=== PATIENT | male | born 1945 | race Caucasian/White ===

== ENCOUNTER → 2016-06-12 | Outpatient (CLI) | payer MEDICARE ==
--- NOTE | 2016-06-12 19:00 | PN ---
This patient has chronic insomnia, he is a 70-year-old and is coming in for a yearly check. He is still on 10 mg of Ambien which helps with ( ) induction and maintenance. He is unable to sleep at all off the treatment. Ambien has helped this patient consolidate his sleep hours to an average of 6 to 7 hours of sleep every night and he wakes up refreshed and alert during the day. No sleepwalking. No other side effects related to Ambien and his treatment has been essentially successful. No other medical problems or comorbidities since. No symptoms of restless legs. No nocturnal pain. No nocturnal dyspnea or chest pain. No nightmares. No other complaints otherwise. BP is 128/78, pulse 60, respirations 16, temperature 98.4, saturation 97% on room air. Weight is 274. Hart score is at 8. BMI is 38. GENERAL APPEARANCE: Calm, comfortable. HEENT: Negative for goiter or neck masses. LUNGS: Clear to auscultation. CARDIOVASCULAR: Heart sounds regular rate and rhythm. Normal S1, S2. ABDOMEN: Soft, nontender. No organomegaly. EXTREMITIES: No edema. No cyanosis or clubbing. IMPRESSION: 1. Chronic insomnia well treated with Ambien 10 mg. 2. Mild positional obstructive sleep apnea in a patient who has lost a considerable amount of weight since last year. 3. Benign prostatic hypertrophy. 4. Nephrolithiasis. 5. Hyperlipidemia. PLAN: 1. Continue with Ambien 10 mg at bedtime. 2. Encourage further weight loss. 3. See me back in a year's time in follow-up, earlier if needed.
== END | disposition home or self-care (01) ==

== ENCOUNTER → 2016-07-02 | Outpatient (CLI) | payer MEDICARE ==
[2016-07-02 14:42] LABS: Aty Lym Flag Slight; CH 29.8; CHCM 33.5; HCT 48.7 % (39.0-53.0); HDW 3.08; HGB 15.8 gm/dL (13.0-17.5); MCHC 32.5 g/dL (31.0-37.0); MCV 89.3 fL (80.0-100.0); Mean Platelet Volume 6.8; RBC 5.45 m/uL (4.30-5.90); RDW 15.1 % (11.5-15.5); WBC 7.3 k/uL (3.8-10.6); WBC (Perox) 7.62
[2016-07-02 14:45] LABS: Anion Gap 12 mmol/L; Blood Urea Nitrogen 20 mg/dL (9-20); Calcium 9.6 mg/dL (8.4-10.2); Carbon Dioxide 28 mmol/L (22-30); Chloride 103 mmol/L (98-107); Glucose 104 mg/dL (74-99); Non-African American GFR(MDRD) >60 (>60 ml/min/1.73 sqM); Potassium 4.4 mmol/L (3.5-5.1); Sodium 143 mmol/L (137-145)
[2016-07-02 15:13] LABS: Add Differential Manual Differential
[2016-07-02 15:16] LABS: Nucleated Red Blood Cells 0 /100 WBC (0-0); Total Cells Counted 100
[2016-07-02 15:17] LABS: Manual Review Performed
== END | disposition home or self-care (01) ==
LOC: LABWHC1 13:27
PROVIDERS: ATTEND Internal Medicine
DX: J06.9 Acute upper respiratory infection, unspecified (principal)
CPT/HCPCS: 36415; 80048; 85025; 87502

== ENCOUNTER → 2017-04-08 | Outpatient (CLI) | payer MEDICARE ==
[2017-04-08 11:31] LABS: Anisocytosis Slight; Basophils # (A) 0.1 k/uL (0-0.2); Basophils % (A) 1 %; CH 29.6; CHCM 32.3; Eosinophils # (A) 0.3 k/uL (0-0.7); Eosinophils % (A) 4 %; HCT 48.2 % (39.0-53.0); HDW 2.82; HGB 15.4 gm/dL (13.0-17.5); Luc # (Auto) 0.23; Luc % (Auto) 4; Lymphocytes # (A) 1.4 k/uL (1.0-4.8); Lymphocytes % (A) 22 %; MCH 29.5 pg (25.0-35.0); MCV 92.2 fL (80.0-100.0); Mean Platelet Volume 7.2; Monocytes # (A) 0.6 k/uL (0-1.0); Monocytes % (A) 9 %; Neutrophils % (A) 61 %; RBC 5.23 m/uL (4.30-5.90); RDW 16.1 % (11.5-15.5); WBC 6.5 k/uL (3.8-10.6); WBC (Perox) 6.73
[2017-04-08 11:54] LABS: ALT 22 U/L (21-72); AST 26 U/L (17-59); Alkaline Phosphatase 77 U/L (38-126); Anion Gap 8 mmol/L; Blood Urea Nitrogen 17 mg/dL (9-20); Calcium 9.1 mg/dL (8.4-10.2); Carbon Dioxide 27 mmol/L (22-30); Chloride 105 mmol/L (98-107); Cholesterol 143 mg/dL (<200); Glucose 115 mg/dL (74-99); HDL Cholesterol 36 mg/dL (40-60); Magnesium 1.8 mg/dL (1.6-2.3); Non-African American GFR(MDRD) >60 (>60 ml/min/1.73 sqM); Potassium 4.6 mmol/L (3.5-5.1); Sodium 140 mmol/L (137-145); Total Bilirubin 0.7 mg/dL (0.2-1.3); Total Protein 6.9 g/dL (6.3-8.2); Uric Acid 6.6 mg/dL (3.5-8.5)
[2017-04-08 13:04] LABS: Prostate Specific Antigen 5.06 ng/mL (0.00-4.00)
== END | disposition home or self-care (01) ==
LOC: LABWHC1 10:41
PROVIDERS: ATTEND Internal Medicine
DX: Z00.00 Encounter for general adult medical examination without abnormal findings (principal); E78.5 Hyperlipidemia, unspecified; E55.9 Vitamin D deficiency, unspecified; E11.9 Type 2 diabetes mellitus without complications; E66.9 Obesity, unspecified; J44.9 Chronic obstructive pulmonary disease, unspecified; I10 Essential (primary) hypertension; M81.0 Age-related osteoporosis without current pathological fracture
CPT/HCPCS: 36415; 80053; 80061; 82306; 83036; 83735; 84153; 84443; 84550; 85025

== ENCOUNTER → 2017-09-10 | Outpatient (CLI) | payer MEDICARE ==
[2017-09-10 11:49] LABS: Prostate Specific Antigen 5.3 ng/mL (0.00-4.00)
[2017-09-10 20:33] LABS: Hemoglobin A1C 7.5 % (4.0-6.0)
== END | disposition home or self-care (01) ==
LOC: LABWHC1 10:42
PROVIDERS: ATTEND Internal Medicine
DX: N40.0 Benign prostatic hyperplasia without lower urinary tract symptoms (principal); E11.9 Type 2 diabetes mellitus without complications
CPT/HCPCS: 36415; 82947; 83036; 84153

== ENCOUNTER → 2018-01-07 | Outpatient (CLI) | payer MEDICARE ==
--- NOTE | 2018-01-07 15:55 | PN ---
PROGRESS NOTE Angel is 72. His chronic insomnia has been very well treated with Ambien 10 mg at bedtime. He has had insomnia for years. I treated this patient for at least 2-3 years for now. His weight remains stable. He has mild positional obstructive sleep apnea and has not been able to lose significant amount of weight and his weight remained stable. Never the less, he does not have any typical features of obstructive sleep apnea in general and sleeping on his side most of the time. He goes to bed around 10:00 p.m., wakes up 7:00 am in the morning. He takes Ambien 30 minutes before falling sleep. No side effects from the treatment. No sleepwalking. No dreams. No nightmares. Denies waking up in the middle of the night and his sleep is solid and he wakes up very much refreshed and alert during the day. Attempts were made to stop Ambien. However this has failed. No history of chronic anxiety or depression. No chronic pain. No nocturnal dyspnea or shortness of breath. No chest pain. No heartburn. REVIEW OF SYSTEMS: Review of systems negative for now. His 12-point review of system was performed and positive findings are mentioned above history of present illness. He sees Dr. Santiago regarding cardiovascular disease although he was not confirmed to have any form of coronary artery disease at this point in time. PHYSICAL EXAMINATION: His current vital signs are as follows: His blood pressure is 117/73, pulse is 77 respirations 17, temperature 97.8. His Raleigh score is down to 5. Weight is 288. Height is 5 feet 11 inches, BMI is 42. GENERAL APPEARANCE: Calm comfortable in no acute distress. Head is atraumatic, normocephalic. NECK: Supple. There is no JVD. No goiter or neck masses. LUNGS: Clear to auscultation. HEART: Sounds regular rate and rhythm. Normal S1, S2. No S3. No murmurs. ABDOMEN: Soft, nontender. No organomegaly. Extremities there is no edema. No cyanosis or clubbing. SKIN: Negative for wounds or ulceration. NEUROLOGIC: Alert and oriented x3. No focal neurological deficits. PSYCHIATRIC: Negative for anxiety or depression. IMPRESSION: 1. Chronic insomnia well treated with ability to induce and maintain sleep with Ambien 10 mg at bedtime. 2. Mild positional obstructive sleep apnea. 3. Obesity with stable weight. BMI is 40 and stable. 4. Hyperlipidemia. 5. Nephrolithiasis. PLAN: 1. Continue with the Ambien. 2. Treatment will continue as long as the patient is unable to induce and maintained sleep without it. The treatment has been extremely successful without any major difficulties with sleep quality and I do not see any contraindications for this patient's Ambien treatment. 3. We will continue treatment for now. MMODL / IJN: [id number] /
== END | disposition home or self-care (01) ==
LOC: SLEEP 13:55
PROVIDERS: ATTEND Internal Medicine Critical Care Medicine
DX: G47.33 Obstructive sleep apnea (adult) (pediatric) (principal); F51.04 Psychophysiologic insomnia; E66.9 Obesity, unspecified; N20.0 Calculus of kidney; E78.5 Hyperlipidemia, unspecified; Z68.41 Body mass index [BMI] 40.0-44.9, adult; Z79.899 Other long term (current) drug therapy

== ENCOUNTER → 2018-01-14 | Outpatient (CLI) | payer MEDICARE ==
[2018-01-14 13:24] LABS: Blood Urea Nitrogen 14 mg/dL (9-20); Calcium 9.5 mg/dL (8.4-10.2); Carbon Dioxide 27 mmol/L (22-30); Glucose 157 mg/dL (74-99)
[2018-01-14 13:33] LABS: Anion Gap 10 mmol/L; Chloride 104 mmol/L (98-107); Potassium 5.1 mmol/L (3.5-5.1); Sodium 141 mmol/L (137-145)
[2018-01-14 13:55] LABS: Prostate Specific Antigen 4.88 ng/mL (0.00-4.00)
[2018-01-14 21:37] LABS: Hemoglobin A1C 7.7 % (4.0-6.0)
== END | disposition home or self-care (01) ==
LOC: LABWHC1 12:36
PROVIDERS: ATTEND Internal Medicine
DX: N40.0 Benign prostatic hyperplasia without lower urinary tract symptoms (principal); E11.9 Type 2 diabetes mellitus without complications; E87.8 Other disorders of electrolyte and fluid balance, not elsewhere classified
CPT/HCPCS: 36415; 80048; 83036; 84153

== ENCOUNTER → 2018-05-16 | Outpatient (CLI) | payer MEDICARE | END | disposition home or self-care (01) | LOC: LABWHC1 08:54 | PROVIDERS: ATTEND Internal Medicine | DX: J06.9 Acute upper respiratory infection, unspecified (principal) | CPT/HCPCS: 87502 ==

== ENCOUNTER → 2018-07-23 | Outpatient (CLI) | payer MEDICARE | END | disposition home or self-care (01) | LOC: LABWHC1 11:35 | PROVIDERS: ATTEND Internal Medicine | DX: N40.0 Benign prostatic hyperplasia without lower urinary tract symptoms (principal) | CPT/HCPCS: 36415; 84153 ==

== ENCOUNTER → 2018-10-08 | Outpatient (CLI) | payer MEDICARE ==
[2018-10-08 14:53] LABS: ALT 17 U/L (21-72); AST 40 U/L (17-59); Albumin 4.4 g/dL (3.5-5.0); Alkaline Phosphatase 100 U/L (38-126); Anion Gap 9 mmol/L; Blood Urea Nitrogen 19 mg/dL (9-20); Calcium 9.7 mg/dL (8.4-10.2); Carbon Dioxide 24 mmol/L (22-30); Chloride 105 mmol/L (98-107); Glucose 106 mg/dL (74-99); Potassium 4.9 mmol/L (3.5-5.1); Sodium 138 mmol/L (137-145); Total Bilirubin 0.8 mg/dL (0.2-1.3); Total Protein 7.1 g/dL (6.3-8.2)
--- NOTE | 2018-10-08 16:10 | US ---
EXAMINATION TYPE: US kidneys/renal and bladder DATE OF EXAM: 10/08/2018 COMPARISON: US 2011. CLINICAL HISTORY: hematuria R31,N20.0 nephrolithiasis,N40.0,R31,N20.. Hematuria, nephrolithiasis. EXAM MEASUREMENTS: Right Kidney: 13.6 x 7.3 x 5.8 cm Left Kidney: 15.1 x 5.9 x 6.6 cm Post Void Residual Volume: Not performed *Limited due to body habitus Right Kidney: No hydronephrosis or masses seen Left Kidney: Hypoechoic area seen inferiorly measurin.0 x 2.1 x 2.0 cm. A second hypoechoic area seen inferiorly measurin.6 x 1.4 x 1.7 cm. Prominent pyramids seen. Bladder: Hyperechoic area seen within the bladder with shadowing measurin.8 x 2.8 x 1.6 cm. Bilateral Jets seen: Yes Right kidney is normal in size without suspicious mass or hydronephrosis. Left kidney shows round ane choic lesion is felt to reflect simple appearing cysts measuring under 2 cm in size. Bladder is poorly distended. Shadowing hypoechoic structure could reflect intraluminal calculus. Find ing could also reflect product of prostate hypertrophy impressing on bladder base posteriorly. IMPRESSION: Possible 2.6 cm intraluminal bladder calculus. Suboptimal study without hydronephrosis bilaterally. A dvise CT follow-up to better evaluate.
== END | disposition home or self-care (01) ==
LOC: RADUSWWP 13:59
PROVIDERS: ATTEND Internal Medicine
DX: N20.0 Calculus of kidney (principal); R31.9 Hematuria, unspecified; N40.0 Benign prostatic hyperplasia without lower urinary tract symptoms; R97.20 Elevated prostate specific antigen [PSA]
CPT/HCPCS: 76770; 80053; 84153

== ENCOUNTER → 2018-12-08 | Outpatient (CLI) | payer MEDICARE ==
[2018-12-08 13:19] LABS: Anisocytosis Slight; Basophils # (A) 0.1 k/uL (0-0.2); Basophils % (A) 1 %; Eosinophils # (A) 0.4 k/uL (0-0.7); Eosinophils % (A) 5 %; HGB 15.1 gm/dL (13.0-17.5); Lymphocytes # (A) 1.6 k/uL (1.0-4.8); Lymphocytes % (A) 22 %; MCH 28.4 pg (25.0-35.0); MCHC 32.7 g/dL (31.0-37.0); MCV 86.8 fL (80.0-100.0); Mean Platelet Volume 7.3; Monocytes # (A) 0.5 k/uL (0-1.0); Monocytes % (A) 7 %; Neutrophils # (A) 4.8 k/uL (1.3-7.7); Neutrophils % (A) 63 %; Platelet Count 207 k/uL (150-450); RDW 16.1 % (11.5-15.5); WBC 7.6 k/uL (3.8-10.6)
== END | disposition home or self-care (01) ==
LOC: LABWHC1 12:34
PROVIDERS: ATTEND Internal Medicine
DX: D64.9 Anemia, unspecified (principal)
CPT/HCPCS: 36415; 85025

== ENCOUNTER → 2019-01-06 | Outpatient (CLI) | payer MEDICARE ==
[2019-01-06 14:43] LABS: Basophils % (A) 1 %; Eosinophils # (A) 0.3 k/uL (0-0.7); Eosinophils % (A) 4 %; HCT 43.9 % (39.0-53.0); HGB 14.3 gm/dL (13.0-17.5); Lymphocytes # (A) 1.5 k/uL (1.0-4.8); Lymphocytes % (A) 21 %; MCH 28.8 pg (25.0-35.0); MCHC 32.6 g/dL (31.0-37.0); MCV 88.3 fL (80.0-100.0); Mean Platelet Volume 6.9; Monocytes # (A) 0.5 k/uL (0-1.0); Monocytes % (A) 7 %; Neutrophils # (A) 4.6 k/uL (1.3-7.7); Neutrophils % (A) 64 %; Platelet Count 197 k/uL (150-450); RBC 4.97 m/uL (4.30-5.90); RDW 15.5 % (11.5-15.5); WBC 7.1 k/uL (3.8-10.6)
[2019-01-06 18:57] LABS: African American GFR (CKD) 86.2 (60.0-200.0); Anion Gap 8.2 mmol/L (4.00-12.00); Calcium 9.2 mg/dL (8.7-10.3); Carbon Dioxide 25.8 mmol/L (21.6-31.8); Non-African American GFR(CKD) 74.3 (60.0-200.0); Potassium 4.6 mmol/L (3.5-5.5)
== END | disposition home or self-care (01) ==
LOC: LABWHC1 13:15
PROVIDERS: ATTEND Urology
DX: N21.0 Calculus in bladder (principal)
CPT/HCPCS: 36415; 80048; 85025; 93005

== ENCOUNTER → 2019-01-27 | Outpatient (CLI) | payer MEDICARE ==
--- NOTE | 2019-01-27 17:39 | PN ---
PROGRESS NOTE This is a 73-year-old male patient who is suffering from chronic insomnia. The patient has been under my care for more than 3 years. He is obese and he is trying to lose weight. He has lost around 4 pounds since his last evaluation. I have worked with him on his sleep hygiene and I have done also cognitive behavior regarding his chronic insomnia. He is not drinking alcohol. He has implemented good sleep hygiene measures. Over the past 2 years he has been on Ambien and he has done very well on the medication at a dose of 10 mg at bedtime. He tried to wean himself off the Ambien, without much success, as the patient is unable to fall asleep and he averages around 2-3 hours of sleep if he goes off the medication. With the medication he does extremely well; he falls asleep within a few minutes and he is able to generate sleep between 11 p.m. and 7 a.m. in the morning without any major difficulties. No hypersomnia or sleepiness during the day. No sleepwalking or sleeptalking. No dreams or nightmares. No unusual behavior at nighttime. No reported history of substance abuse. No alcoholism. No chronic anxiety or depression. His comorbidities are all inactive and stable. No heartburn, chest pain, shortness of breath or any arthritis or issues over this past year. He did have issues with kidney stones and he underwent treatment with Urology. He was also diagnosed having diabetes mellitus, and he was started on Janumet. PAST MEDICAL HISTORY: 1. Obesity. 2. Diabetes mellitus. 3. Hyperlipidemia. 4. Kidney stones. 5. Chronic insomnia. REVIEW OF SYSTEMS: Fourteen-point review of systems was done. The positive findings were all mentioned above in the history of present illness. No history of any chest pain, angina. No coronary artery disease. No altered mentation. No headaches. No nausea. No vomiting. No dysuria, frequency or urgency. No falls. No skeletal injuries. PHYSICAL EXAMINATION: VITAL SIGNS: BP is 140/70, pulse 70, respirations 16, temperature 97.9, saturation 97% on room air. Height 5 feet 10 inches, weight 284. BMI is 40.7. GENERAL APPEARANCE: Calm, comfortable. HEAD: Atraumatic, normocephalic. NECK: Supple. No JVD. No goiter or neck masses. Mallampati class IV. LUNGS: Clear to auscultation. HEART: Heart sounds are regular rate and rhythm. Normal S1, S2. No S3, S4. No murmurs. ABDOMEN: Soft, nontender. No organomegaly. EXTREMITIES: No edema. No cyanosis or clubbing. NEUROLOGIC: He is alert and oriented x3. There are no focal neurological deficits. PSYCHIATRIC: Negative for anxiety or depression. IMPRESSION: 1. Chronic psychophysiologic insomnia. 2. Mild positional obstructive sleep apnea. 3. Obesity with some a few-pounds interval weight loss. 4. New-onset diabetes mellitus. 5. Hyperlipidemia. 6. History of kidney stones. PLAN: 1. Renew the Ambien 10 mg bedtime. The patient has been taking this medication without any side effects and he has had excellent results with Ambien. Recommend continuing the treatment for now. Refill was given. I would suggest the patient obtain his refills at a later stage through his primary care physician, knowing that this is going to be a maintenance treatment for him. 2. Encourage further weight loss. 3. Sleep hygiene measures are all adequate. 4. No alcohol drinking. 5. No other psychiatric disorder at this point in time. Encourage weight loss. See me back as needed. MMODL / IJN: [id number] /
== END | disposition home or self-care (01) ==
LOC: SLEEP 14:35
PROVIDERS: ATTEND Internal Medicine Critical Care Medicine
DX: Z53.9 Procedure and treatment not carried out, unspecified reason (principal)

== ENCOUNTER → 2019-02-03 | Outpatient (CLI) | payer MEDICARE ==
--- NOTE | 2019-02-03 14:18 | XR ---
EXAMINATION TYPE: XR shoulder complete RT DATE OF EXAM: 02/03/2019 CLINICAL HISTORY: Pain after lifting injury. TECHNIQUE: Three views of the right shoulder are obtained. COMPARISON: None. FINDINGS: There is no acute fracture/dislocation evident in the right shoulder. [id number] sandra rowing glenohumeral and acromioclavicular joints. No significant spurring. Some faint calcification n ear distal acromion could reflect product of calcific tendinitis along course of the rotator cuff ten dons or calcific bursitis. Correlate clinically. The visualized ribs are intact and unremarkable. IMPRESSION: As above.
== END | disposition home or self-care (01) ==
LOC: RADXRMAIN 13:59
PROVIDERS: ATTEND Internal Medicine
DX: M65.811 Other synovitis and tenosynovitis, right shoulder (principal); M89.8X1 Other specified disorders of bone, shoulder

== ENCOUNTER → 2019-02-19 | Outpatient (CLI) | payer MEDICARE ==
--- NOTE | 2019-02-19 13:24 | XR ---
EXAMINATION TYPE: XR wrist complete LT DATE OF EXAM: 02/19/2019 COMPARISON: None HISTORY: Wrist fracture 6 months prior, continued pain TECHNIQUE: Left wrist is examined in 4 projections. FINDINGS: No acute fractures are evident. No subacute fractures are evident. Joint spaces preserved. Soft tissues and mild diffuse prominence. IMPRESSION: 1. Normal 4 view left wrist. 2. Some mild soft tissue prominence may be present. 3. Follow-up exams can be performed as clinically indicated
== END | disposition home or self-care (01) ==
LOC: LABWHC1 11:04
PROVIDERS: ATTEND Internal Medicine
DX: S62.102A Fracture of unspecified carpal bone, left wrist, initial encounter for closed fracture (principal)

== ENCOUNTER → 2019-04-27 | Outpatient (CLI) | payer MEDICARE ==
[2019-04-27 13:01] LABS: Basophils # (A) 0.1 k/uL (0-0.2); Basophils % (A) 1 %; Eosinophils # (A) 0.2 k/uL (0-0.7); Eosinophils % (A) 4 %; HGB 14.7 gm/dL (13.0-17.5); Lymphocytes # (A) 1.4 k/uL (1.0-4.8); Lymphocytes % (A) 22 %; MCH 30.1 pg (25.0-35.0); MCHC 34.1 g/dL (31.0-37.0); MCV 88.2 fL (80.0-100.0); Mean Platelet Volume 5.9; Monocytes # (A) 0.4 k/uL (0-1.0); Monocytes % (A) 7 %; Neutrophils % (A) 64 %; Platelet Count 215 k/uL (150-450); RBC 4.87 m/uL (4.30-5.90); RDW 15.2 % (11.5-15.5); WBC 6.3 k/uL (3.8-10.6)
[2019-04-27 15:34] LABS: Erythrocyte Sedimentation Rate 6 mm/hr (0-15)
[2019-04-27 20:27] LABS: ALT 14 U/L (10-49); AST 28 U/L (14-35); African American GFR (CKD) 97.9 (60.0-200.0); Albumin/Globulin Ratio 2.56 (1.60-3.17); Alkaline Phosphatase 73 U/L (41-126); BUN/Creat Ratio 17.78 Ratio (12.00-20.00); C Reactive Protein <0.4 mg/dL (0.0-0.8); Calcium 9.6 mg/dL (8.7-10.3); Chloride 106 mmol/L (96-109); Chol/HDL Ratio 3.97; Cholesterol 135 mg/dL (0-200); Creatine Kinase 135 U/L (35-257); Globulin 1.8 g/dL (1.6-3.3); Glucose 125 mg/dL (70-110); LDL Cholesterol,Calculated 64.2 mg/dL (0.0-131.0); Magnesium 1.8 mg/dL (1.5-2.4); Non-African American GFR(CKD) 84.4 (60.0-200.0); Phosphorus 2.9 mg/dL (2.4-5.1); Sodium 140 mmol/L (135-145); Total Bilirubin 0.8 mg/dL (0.3-1.2); Total Protein 6.4 g/dL (6.2-8.2)
[2019-04-27 22:39] LABS: Hemoglobin A1C 6.7 % (4.0-6.0)
== END | disposition home or self-care (01) ==
LOC: LABWHC1 11:33
PROVIDERS: ATTEND Internal Medicine
DX: Z00.00 Encounter for general adult medical examination without abnormal findings (principal); N40.0 Benign prostatic hyperplasia without lower urinary tract symptoms; E11.9 Type 2 diabetes mellitus without complications; E87.8 Other disorders of electrolyte and fluid balance, not elsewhere classified; E78.5 Hyperlipidemia, unspecified; I10 Essential (primary) hypertension; N20.0 Calculus of kidney; M19.90 Unspecified osteoarthritis, unspecified site; E55.9 Vitamin D deficiency, unspecified
CPT/HCPCS: 36415; 80053; 80061; 82306; 82550; 83036; 83735; 84100; 84153; 84443; 85025; 85652; 86140

== ENCOUNTER → 2019-11-02 | Outpatient (CLI) | payer MEDICARE ==
--- NOTE | 2019-11-02 12:41 | XR ---
Left wrist HISTORY: Pain, soft tissue swelling 4 views of the left wrist, correlation prior exam 02/19/2019 Joint space loss is present at the radiocarpal joint. Subchondral geode formation present at the dist al ulna and radius, carpal bones. Joint space loss also present in the intercarpal joints, carpometac arpal joint of the first digit. There is subchondral sclerosis at the first digit. Some hypertrophic changes also present at this level. Bone mineralization is maintained. Alignment is normal. No fractu re or dislocation. IMPRESSION: Osteoarthritis.
== END | disposition home or self-care (01) ==
LOC: LABWHC1 12:00
PROVIDERS: ATTEND Internal Medicine
DX: M19.032 Primary osteoarthritis, left wrist (principal)

== ENCOUNTER → 2020-04-27 | Outpatient (CLI) | payer MEDICARE ==
[2020-04-27 10:37] LABS: Basophils # (A) 0.1 k/uL (0-0.2); Basophils % (A) 1 %; Eosinophils # (A) 0.3 k/uL (0-0.7); Eosinophils % (A) 5 %; HGB 14.8 gm/dL (13.0-17.5); Lymphocytes # (A) 1.4 k/uL (1.0-4.8); Lymphocytes % (A) 22 %; MCH 29.6 pg (25.0-35.0); MCHC 33.6 g/dL (31.0-37.0); MCV 88.3 fL (80.0-100.0); Mean Platelet Volume 7.1; Monocytes # (A) 0.5 k/uL (0-1.0); Monocytes % (A) 7 %; Neutrophils # (A) 4.1 k/uL (1.3-7.7); Neutrophils % (A) 63 %; Platelet Count 169 k/uL (150-450); RBC 4.99 m/uL (4.30-5.90); RDW 15.1 % (11.5-15.5); WBC 6.6 k/uL (3.8-10.6)
[2020-04-27 13:19] LABS: Erythrocyte Sedimentation Rate 6 mm/hr (0-15)
[2020-04-27 15:26] LABS: African American GFR (CKD) 85.6 (60.0-200.0); Albumin 4.6 g/dL (3.80-4.90); Albumin/Globulin Ratio 2.42 (1.60-3.17); Anion Gap 10.5 mmol/L (4.00-12.00); Calcium 9.3 mg/dL (8.7-10.3); Carbon Dioxide 24.5 mmol/L (21.6-31.8); Chol/HDL Ratio 3.79; Globulin 1.9 g/dL (1.6-3.3); LDL Cholesterol,Calculated 46.2 mg/dL (0.0-131.0); Magnesium 1.7 mg/dL (1.5-2.4); Non-African American GFR(CKD) 73.8 (60.0-200.0); Phosphorus 3.4 mg/dL (2.4-5.1); Potassium 4.2 mmol/L (3.5-5.5); Total Bilirubin 0.8 mg/dL (0.3-1.2); Total Protein 6.5 g/dL (6.2-8.2); VLDL Calculation 48.8 mg/dL (5.00-40.00)
[2020-04-27 18:44] LABS: Hemoglobin A1C 7.3 % (4.0-6.0)
== END | disposition home or self-care (01) ==
LOC: LABWHC1 09:10
PROVIDERS: ATTEND Internal Medicine
DX: D64.9 Anemia, unspecified (principal); I10 Essential (primary) hypertension; E78.5 Hyperlipidemia, unspecified; N40.0 Benign prostatic hyperplasia without lower urinary tract symptoms
CPT/HCPCS: 36415; 80053; 80061; 82550; 83036; 83735; 84100; 84153; 85025; 85652

== ENCOUNTER → 2020-08-26 | Outpatient (CLI) | payer MEDICARE ==
[2020-08-26 22:37] LABS: Hemoglobin A1C 7.5 % (4.0-6.0)
== END | disposition home or self-care (01) ==
LOC: LABWHC1 10:37
PROVIDERS: ATTEND Internal Medicine
DX: E11.65 Type 2 diabetes mellitus with hyperglycemia (principal)
CPT/HCPCS: 36415; 82947; 83036

== ENCOUNTER → 2020-09-29 | Outpatient (CLI) | payer MEDICARE ==
--- NOTE | 2020-09-29 10:02 | XR ---
EXAMINATION TYPE: XR chest 2V DATE OF EXAM: 09/29/2020 CLINICAL HISTORY: SOB. TECHNIQUE: Frontal and lateral view of the chest. COMPARISON: None FINDINGS: There is increased AP diameter of the chest. The cardiomediastinal silhouette is within no rmal limits for size. Pulmonary vasculature is normal. There is no focal air space opacity. No pleur al effusion. No pneumothorax seen. No acute displaced osseous fracture. IMPRESSION: Increased AP diameter may represent chronic emphysematous change. Otherwise no acute cardiopulmonary process.
[2020-09-29 15:02] LABS: Basophils # (A) 0.07 X 10*3/uL (0.00-0.10); Eosinophils # (A) 0.26 X 10*3/uL (0.04-0.35); Eosinophils % (A) 3.7 %; HGB 14.2 g/dL (13.0-17.0); Lymphocytes # (A) 1.64 X 10*3/uL (0.90-5.00); Lymphocytes % (A) 23.3 %; MCH 28.7 pg (27.0-32.0); MCHC 32.3 g/dL (32.0-37.0); MCV 89.1 fL (80.0-97.0); Mean Platelet Volume 10.5 fL (9.5-12.2); Monocytes # (A) 0.77 X 10*3/uL (0.20-1.00); Monocytes % (A) 10.9 %; Neutrophils # (A) 4.27 X 10*3/uL (1.80-7.70); Neutrophils % (A) 60.7 %; Platelet Count 192 X 10*3/uL (140-440); RBC 4.94 X 10*6/uL (4.40-5.60); RDW 14.9 % (11.5-14.5); WBC 7.04 X 10*3/uL (4.50-10.00)
[2020-09-30 00:06] LABS: African American GFR (CKD) 85.6 (60.0-200.0); Albumin 4.5 g/dL (3.80-4.90); Albumin/Globulin Ratio 2.25 (1.60-3.17); Anion Gap 14.2 mmol/L (4.00-12.00); Calcium 9.5 mg/dL (8.7-10.3); Carbon Dioxide 22.8 mmol/L (21.6-31.8); Non-African American GFR(CKD) 73.8 (60.0-200.0); Potassium 4.5 mmol/L (3.5-5.5); Total Bilirubin 0.8 mg/dL (0.2-1.2); Total Protein 6.5 g/dL (6.2-8.2)
== END | disposition home or self-care (01) ==
LOC: LABWHC1 08:07
PROVIDERS: ATTEND Internal Medicine
DX: R94.31 Abnormal electrocardiogram [ECG] [EKG] (principal); F41.9 Anxiety disorder, unspecified; I50.9 Heart failure, unspecified; J44.9 Chronic obstructive pulmonary disease, unspecified
CPT/HCPCS: 36415; 71046; 80053; 83880; 84484; 85025

== ENCOUNTER 2020-11-15 01:34 | Emergency (ER) | payer MEDICARE ==
[2020-11-15 01:45] VITALS: TEMP 97.1
[2020-11-15 02:34] LABS: Basophils # (A) 0.1 k/uL (0-0.2); Basophils % (A) 1 %; Eosinophils # (A) 0.2 k/uL (0-0.7); Eosinophils % (A) 2 %; HCT 43.7 % (39.0-53.0); HGB 14.4 gm/dL (13.0-17.5); Lymphocytes # (A) 1.5 k/uL (1.0-4.8); Lymphocytes % (A) 15 %; MCV 87.8 fL (80.0-100.0); Mean Platelet Volume 7.2; Monocytes # (A) 0.6 k/uL (0-1.0); Monocytes % (A) 6 %; Neutrophils # (A) 7.9 k/uL (1.3-7.7); Neutrophils % (A) 75 %; Platelet Count 208 k/uL (150-450); RBC 4.97 m/uL (4.30-5.90); RDW 15.7 % (11.5-15.5); WBC 10.6 k/uL (3.8-10.6)
[2020-11-15 02:53] LABS: Albumin 4.3 g/dL (3.5-5.0); Calcium 9.4 mg/dL (8.4-10.2); Potassium 4.8 mmol/L (3.5-5.1); Total Bilirubin 0.7 mg/dL (0.2-1.3); Total Protein 6.8 g/dL (6.3-8.2)
[2020-11-15] MEDS ORDERED: TAMSULOSIN 0.4 MG CAP.ER.24H PO STA (03:04)
--- NOTE | 2020-11-15 03:13 | CT ---
EXAMINATION TYPE: CT abdomen pelvis wo con DATE OF EXAM: 11/15/2020 COMPARISON: None HISTORY: Flank pain CT DLP: mGycm Automated exposure control for dose reduction was used. Images obtained from the diaphragm to the floor the pelvis with no contrast. There is some patchy atelectasis at the lung bases. There is no pleural effusion. There is no pericar dial effusion. Heart size is fairly normal. Liver is enlarged and measures 25.5 cm. Spleen is intact. The stomach is intact. There is no pancreat ic mass. There are clips from cholecystectomy. There is no adrenal mass. There is 3 mm calculus lower pole left kidney. There are multiple small calculi up to 2 mm in the rig ht kidney. There is 3 mm calculus upper pole right kidney. There is left-sided hydronephrosis. There is 2 cm cortical cyst posterior left kidney. There is 4 mm obstructing calculus in the proximal left ureter. There are 2 large bladder calculi that measure 2.2 cm. Urinary bladder is intact. There is no inguinal hernia. There is enlarged prostate that measures 6.5 cm. There is no pelvic mass. Appendix appears normal. There is left lateral abdominal wall hernia that co ntains the descending colon. There is no evidence of a bowel obstruction. Hernia measures 6 x 3 cm. There is no mesenteric edema. There is no ascites or free air. There is no bowel obstruction. The lum bar vertebra have fairly normal alignment. There is L4-5 disc space narrowing. There is no compressio n fracture. The bony pelvis is intact. There is right-sided hip joint space narrowing. There is no hi p dysplasia. There are degenerative cysts in the right acetabulum. IMPRESSION: Obstructing calculus proximal left ureter with hydronephrosis. Multiple bilateral renal calculi. Hepatomegaly. Right hip joint osteoarthritis. Left lateral abdominal wall hernia containing descending colon but no evidence of obstruction. Large bladder calculi. Enlarged prostate.
--- NOTE | 2020-11-15 03:35 | ED ---
Abdominal Pain HPI - General Chief Complaint: Abdominal Pain Stated Complaint: nausea,vomiting Time Seen by Provider: 11/15/20 01:40 Source: patient, EMS Mode of arrival: EMS Limitations: no limitations - Related Data Previous Rx's Medication Instructions Recorded HYDROcodone/APAP 5-325MG [[place] 1 tab PO Q4HR PRN 3 Days #18 tab 11/15/20 5-325] Allergies Allergy/AdvReac Type Severity Reaction Status Date / Time No Known Allergies Allergy Verified 11/15/20 02:24 Review of Systems ROS Statement: Those systems with pertinent positive or pertinent negative responses have been documented in the HPI. ROS Other: All systems not noted in ROS Statement are negative. Past Medical History Past Medical History: Diabetes Mellitus Additional Past Medical History / Comment(s): kidney stones, gull stones History of Any Multi-Drug Resistant Organisms: None Reported Past Surgical History: Tonsillectomy Past Psychological History: Anxiety Smoking Status: Former smoker Past Alcohol Use History: None Reported Past Drug Use History: Marijuana General Exam Limitations: no limitations GI/Abdominal exam: Present: soft, normal bowel sounds, hernia (Lateral abdominal wall, left side, nontender.). Absent: distended, tenderness, guarding, rebound, rigid, mass Course Vital Signs 11/15/20 01:36 Temperature 97.1 F L Pulse Rate 63 Respiratory 20 Rate Blood Pressure 172/84 O2 Sat by Pulse 94 L Oximetry Medical Decision Making - Lab Data Result diagrams: 11/15/20 02:21 11/15/20 02:21 Lab Results 11/15/20 11/15/20 11/15/20 Range/Units 02:21 02:21 02:21 WBC 10.6 (3.8-10.6) k/uL RBC 4.97 (4.30-5.90) m/uL Hgb 14.4 (13.0-17.5) gm/dL Hct 43.7 (39.0-53.0) % MCV 87.8 (80.0-100.0) fL MCH 29.0 (25.0-35.0) pg MCHC 33.0 (31.0-37.0) g/dL RDW 15.7 H (11.5-15.5) % Plt Count 208 (150-450) k/uL MPV 7.2 Neutrophils % 75 % Lymphocytes % 15 % Monocytes % 6 % Eosinophils % 2 % Basophils % 1 % Neutrophils # 7.9 H (1.3-7.7) k/uL Lymphocytes # 1.5 (1.0-4.8) k/uL Monocytes # 0.6 (0-1.0) k/uL Eosinophils # 0.2 (0-0.7) k/uL Basophils # 0.1 (0-0.2) k/uL Sodium 138 (137-145) mmol/L Potassium 4.8 (3.5-5.1) mmol/L Chloride 105 (98-107) mmol/L Carbon Dioxide 21 L (22-30) mmol/L Anion Gap 12 mmol/L BUN 23 H (9-20) mg/dL Creatinine 1.18 (0.66-1.25) mg/dL Est GFR (CKD-EPI)AfAm 70 (>60 ml/min/1.73 sqM) Est GFR (CKD-EPI)NonAf 60 (>60 ml/min/1.73 sqM) Glucose 226 H (74-99) mg/dL Plasma Lactic Acid Oc (0.7-2.0) mmol/L Calcium 9.4 (8.4-10.2) mg/dL Total Bilirubin 0.7 (0.2-1.3) mg/dL AST 39 (17-59) U/L ALT 16 (4-49) U/L Alkaline Phosphatase 119 (38-126) U/L Troponin I <0.012 (0.000-0.034) ng/mL Total Protein 6.8 (6.3-8.2) g/dL Albumin 4.3 (3.5-5.0) g/dL Amylase 43 (30-110) U/L Lipase 56 (23-300) U/L 11/15/20 Range/Units 02:21 WBC (3.8-10.6) k/uL RBC (4.30-5.90) m/uL Hgb (13.0-17.5) gm/dL Hct (39.0-53.0) % MCV (80.0-100.0) fL MCH (25.0-35.0) pg MCHC (31.0-37.0) g/dL RDW (11.5-15.5) % Plt Count (150-450) k/uL MPV Neutrophils % % Lymphocytes % % Monocytes % % Eosinophils % % Basophils % % Neutrophils # (1.3-7.7) k/uL Lymphocytes # (1.0-4.8) k/uL Monocytes # (0-1.0) k/uL Eosinophils # (0-0.7) k/uL Basophils # (0-0.2) k/uL Sodium (137-145) mmol/L Potassium (3.5-5.1) mmol/L Chloride (98-107) mmol/L Carbon Dioxide (22-30) mmol/L Anion Gap mmol/L BUN (9-20) mg/dL Creatinine (0.66-1.25) mg/dL Est GFR (CKD-EPI)AfAm (>60 ml/min/1.73 sqM) Est GFR (CKD-EPI)NonAf (>60 ml/min/1.73 sqM) Glucose (74-99) mg/dL Plasma Lactic Acid Oc 2.8 H* (0.7-2.0) mmol/L Calcium (8.4-10.2) mg/dL Total Bilirubin (0.2-1.3) mg/dL AST (17-59) U/L ALT (4-49) U/L Alkaline Phosphatase (38-126) U/L Troponin I (0.000-0.034) ng/mL Total Protein (6.3-8.2) g/dL Albumin (3.5-5.0) g/dL Amylase (30-110) U/L Lipase (23-300) U/L Disposition Clinical Impression: Hernia of abdominal wall, Calculus of kidney Disposition: HOME SELF-CARE Condition: Good Instructions (If sedation given, give patient instructions): Kidney Stones ( ED), Ventral Hernia (ED) Prescriptions: HYDROcodone/APAP 5-325MG [[place] 5-325] 1 tab PO Q4HR PRN 3 Days #18 tab PRN Reason: Pain Is patient prescribed a controlled substance at d/c from ED?: Yes When asked, does pt state using other controlled substances?: Yes If prescribed controlled substance>3 days was MAPS reviewed?: Prescribed <3 Days If opioid is for acute pain is fill amount 7 days or less?: Yes If Rx opioid, was Start Talking consent form obtained?: Yes Referrals: Ayo Bradshaw MD [Primary Care Provider] - 1-2 days Zhen Gonzales MD [STAFF PHYSICIAN] - 1-2 days Nomi Altamirano MD [STAFF PHYSICIAN] - 1-2 days
[2020-11-15 03:56] LABS: Amorphous Sediment,Urine Rare /hpf; Appearance,Urine Turbid (Clear); Bacteria,Urine Rare /hpf; Bilirubin,Urine Negative (Negative); Blood,Urine Large (Negative); Color,Urine Light Red; Glucose,Urine (UA) 1+ (Negative); Hyaline Casts,Urine 6 /lpf (0-2); Ketones,Urine 1+ (Negative); Leukocyte Esterase,Urine Negative (Negative); Mucus,Urine Rare /hpf; Nitrite,Urine Negative (Negative); Protein,Urine 1+ (Negative); RBC,Urine 58 /hpf (0-5); Specific Gravity,Urine 1.028 (1.001-1.035); Uric Acid Crystals,Urine Few /hpf; Urobilinogen,Urine <2.0 mg/dL (<2.0); WBC,Urine 11 /hpf (0-5)
[2020-11-15] MEDS ORDERED: traMADol 50 MG STARTER PACK 3 TAB BTL PO STA (04:12)
[2020-11-15 04:22] VITALS: BP 134/96; PULSE 74; RESP 18
== END 2020-11-15 04:30 | disposition home or self-care (01) ==
LOC: EC 01:34
DX: K43.9 Ventral hernia without obstruction or gangrene (principal); N13.2 Hydronephrosis with renal and ureteral calculous obstruction; E11.9 Type 2 diabetes mellitus without complications; F41.9 Anxiety disorder, unspecified; F12.90 Cannabis use, unspecified, uncomplicated; Z87.891 Personal history of nicotine dependence
CPT/HCPCS: 36415; 74176; 80053; 81001; 82150; 83605; 83690; 84484; 85025; 87086; 99284

== ENCOUNTER 2020-11-15 07:18 | Emergency (ER) | payer MEDICARE ==
[2020-11-15 07:24] VITALS: RESP 16; TEMP 98
[2020-11-15] MEDS ORDERED: SODIUM CHLORIDE 0.9% 1,000 ML IV STA (07:25)
[2020-11-15] MEDS ORDERED: KETOROLAC 15 MG/ML 1 ML VIAL IVP STA (07:38)
--- NOTE | 2020-11-15 07:42 | ED ---
General Adult HPI - General Chief complaint: Abdominal Pain Stated complaint: Abdominal pain Time Seen by Provider: 11/15/20 07:19 Source: EMS Mode of arrival: EMS Limitations: no limitations - History of Present Illness Initial comments: Dictation was produced using [employer] dictation software. please excuse any grammatical, word or spelling errors. Chief Complaint: 74-year-old male presents emergency department for left abdominal pain History of Present Illness: Patient's 74-year-old male who was seen earlier this morning for left abdominal pain. Patient was seen in the ER were a computed tomography scan was performed showing left-sided kidney stones and left abdominal wall hernia. He was discharged. When he got home he continued to feel symptoms again and decided to come to the emergency department again. Patient states he has extensive history of kidney stones. He describes his pain as pain to the left flank and left abdomen and radiates down to the left groin. He states this is pain that is had with previous kidney stones. He states he is here for a different pain that he is never felt. Ihe states that he is here back in the emergency department because of the left abdominal pain as opposed to the left flank pain. States that its moderately severe with a score of 7 on a scale of 10. Does complain of some nausea but no vomiting. Computed tomography scan earlier today showed that patient had a proximal ureteral left 4 mm calculus causing mild obstructive uropathy and Left lateral abdominal wall hernia containing descending colon but no evidence of obstruction.. Patient has several calculi of both kidneys. Patient has significant nausea. Patient does take Flomax. The ROS documented in this emergency department record has been reviewed and confirmed by me. Those systems with pertinent positive or negative responses have been documented in the HPI. All other systems are other negative and/or noncontributory. PHYSICAL EXAM: General Impression: Alert and oriented x3, not in acute distress HEENT: Normocephalic atraumatic, extra-ocular movements intact, pupils equal and reactive to light bilaterally, mucous membranes moist. Cardiovascular: Heart regular rate and rhythm Chest: Able to complete full sentences, no retractions, no tachypnea Abdomen: abdomen soft, tenderness to the left periumbilical area, voluntary guarding Musculoskeletal: Pulses present and equal in all extremities, no peripheral edema Motor: no focal deficits noted Neurological: CN II-XII grossly intact, no focal motor or sensory deficits noted Skin: Intact with no visualized rashes Psych: Normal affect and mood ED course: 74-year-old male with left-sided flank pain. Patient is CT performed earlier today that showed obstructing left ureteral calculus and also left abdominal wall hernia vital signs upon arrival are within acceptable limits. Patient has a broad-based hernia to the left abdomen. Patient does have pain to the left abdominal wall. I believe that this pain in his left abdomen is sep arate from any stone pain. His palpatory tenderness to the left anterior abdominal wall that patient reports is separate from the colicky flank pain. States that he is able to tolerate the colicky flank pain. Patient reevaluated bedside at 8:22 AM found to be in stable medical condition. He is resting comfortably and in no acute distress. Patient was counseled on his symptoms. He understands that he likely has 2 ongoing processes with the hernia and with the kidney stone. He feels comfortable going home..Laboratory evaluation obtained. CBC [place]. Metabolic panel shows mild acidosis with some dehydration. Patient given some fluids and IV analgesics. Patient discharged and told to follow-up with primary care physician, urology and Gen. surgery. Patient is understandable and agreeable to plan. Patient understands that he should seek immediate medical attention if he has any worsening symptoms including fever and severe nausea and vomiting. - Related Data Previous Rx's Medication Instructions Recorded HYDROcodone/APAP 5-325MG [[place] 1 tab PO Q4HR PRN 3 Days #18 tab 11/15/20 5-325] Allergies Allergy/AdvReac Type Severity Reaction Status Date / Time No Known Allergies Allergy Verified 11/15/20 07:20 Review of Systems ROS Statement: Those systems with pertinent positive or pertinent negative responses have been documented in the HPI. ROS Other: All systems not noted in ROS Statement are negative. Past Medical History Past Medical History: Diabetes Mellitus Additional Past Medical History / Comment(s): kidney stones, gull stones History of Any Multi-Drug Resistant Organisms: None Reported Past Surgical History: Tonsillectomy Past Psychological History: Anxiety Smoking Status: Former smoker Past Alcohol Use History: None Reported Past Drug Use History: Marijuana General Exam Limitations: no limitations Course Vital Signs 11/15/20 07:20 Temperature 98.0 F Pulse Rate 73 Respiratory 16 Rate Blood Pressure 151/73 O2 Sat by Pulse 92 L Oximetry Medical Decision Making - Lab Data Result diagrams: 11/15/20 07:36 11/15/20 07:32 Lab Results 11/15/20 11/15/20 Range/Units 07:32 07:36 WBC 11.0 H (3.8-10.6) k/uL RBC 4.87 (4.30-5.90) m/uL Hgb 14.5 (13.0-17.5) gm/dL Hct 42.5 (39.0-53.0) % MCV 87.2 (80.0-100.0) fL MCH 29.9 (25.0-35.0) pg MCHC 34.2 (31.0-37.0) g/dL RDW 15.2 (11.5-15.5) % Plt Count 201 (150-450) k/uL MPV 7.5 Neutrophils % 81 % Lymphocytes % 9 % Monocytes % 6 % Eosinophils % 2 % Basophils % 1 % Neutrophils # 8.9 H (1.3-7.7) k/uL Lymphocytes # 1.0 (1.0-4.8) k/uL Monocytes # 0.7 (0-1.0) k/uL Eosinophils # 0.2 (0-0.7) k/uL Basophils # 0.1 (0-0.2) k/uL Sodium 137 (137-145) mmol/L Potassium 5.2 H (3.5-5.1) mmol/L Chloride 106 (98-107) mmol/L Carbon Dioxide 19 L (22-30) mmol/L Anion Gap 12 mmol/L BUN 25 H (9-20) mg/dL Creatinine 1.21 (0.66-1.25) mg/dL Est GFR (CKD-EPI)AfAm 68 (>60 ml/min/1.73 sqM) Est GFR (CKD-EPI)NonAf 59 (>60 ml/min/1.73 sqM) Glucose 207 H (74-99) mg/dL Calcium 9.5 (8.4-10.2) mg/dL Disposition Clinical Impression: Hernia, Kidney stone Disposition: HOME SELF-CARE Condition: Good Instructions (If sedation given, give patient instructions): Kidney Stones (ED), Ventral Hernia (ED) Is patient prescribed a controlled substance at d/c from ED?: No Referrals: Ayo Bradshaw MD [Primary Care Provider] - 1-2 days Zhen Gonzales MD [Family Provider] - 1-2 days Maryana Molina MD [STAFF PHYSICIAN] - 1-2 days
[2020-11-15 07:45] LABS: Basophils # (A) 0.1 k/uL (0-0.2); Basophils % (A) 1 %; Eosinophils # (A) 0.2 k/uL (0-0.7); Eosinophils % (A) 2 %; HCT 42.5 % (39.0-53.0); HGB 14.5 gm/dL (13.0-17.5); Lymphocytes % (A) 9 %; MCH 29.9 pg (25.0-35.0); MCHC 34.2 g/dL (31.0-37.0); MCV 87.2 fL (80.0-100.0); Mean Platelet Volume 7.5; Monocytes # (A) 0.7 k/uL (0-1.0); Monocytes % (A) 6 %; Neutrophils # (A) 8.9 k/uL (1.3-7.7); Neutrophils % (A) 81 %; Platelet Count 201 k/uL (150-450); RBC 4.87 m/uL (4.30-5.90); RDW 15.2 % (11.5-15.5)
[2020-11-15 07:51] LABS: Calcium 9.5 mg/dL (8.4-10.2)
[2020-11-15 08:00] LABS: Potassium 5.2 mmol/L (3.5-5.1)
[2020-11-15 08:46] VITALS: BP 147/79; PULSE 89
== END 2020-11-15 08:45 | disposition home or self-care (01) ==
LOC: EC 07:18
DX: N20.2 Calculus of kidney with calculus of ureter (principal); K43.9 Ventral hernia without obstruction or gangrene; E11.9 Type 2 diabetes mellitus without complications; F41.9 Anxiety disorder, unspecified; F12.90 Cannabis use, unspecified, uncomplicated; Z87.891 Personal history of nicotine dependence
CPT/HCPCS: 99284; 96374; 36415; 80048; 85025; J1885

== ENCOUNTER 2020-11-20 09:03 | Emergency (ER) | payer MEDICARE ==
[2020-11-20 09:28] VITALS: BP 161/78; PULSE 81; RESP 18; TEMP 97.9
--- NOTE | 2020-11-20 09:30 | ED ---
General Adult HPI - General Chief complaint: Recheck/Abnormal Lab/Rx Stated complaint: Kidney stone revisit Time Seen by Provider: 11/20/20 09:09 Source: patient, RN notes reviewed Mode of arrival: ambulatory Limitations: no limitations - History of Present Illness Initial comments: Patient is a pleasant 74-year-old male returning to the emergency department requesting refill of his pain medications. Patient was here several days ago with kidney stone. Patient did call the urologist who stated they were unable to provide refills of his [place] over the phone. Patient states his discomfort has been pretty steady, around 6/10. No fevers. Patient does have some hematuria. Discomfort is left flank. Discomfort is similar to previous kidney stones. No fevers. - Related Data Previous Rx's Medication Instructions Recorded HYDROcodone/APAP 5-325MG [[place] 1 tab PO Q4HR PRN 3 Days #18 tab 11/15/20 5-325] HYDROcodone/APAP 5-325MG [[place] 1 tab PO Q6HR PRN 3 Days #12 tab 11/20/20 5-325] Ibuprofen [Motrin] 600 mg PO Q6HR PRN #20 tab 11/20/20 Allergies Allergy/AdvReac Type Severity Reaction Status Date / Time No Known Allergies Allergy Verified 11/20/20 09:08 Review of Systems ROS Statement: Those systems with pertinent positive or pertinent negative responses have been documented in the HPI. ROS Other: All systems not noted in ROS Statement are negative. Constitutional: Denies: fever, chills Eyes: Denies: eye pain ENT: Denies: ear pain Respiratory: Denies: cough Cardiovascular: Denies: chest pain Endocrine: Denies: fatigue Gastrointestinal: Reports: as per HPI. Denies: nausea, vomiting Genitourinary: Denies: dysuria Musculoskeletal: Reports: as per HPI Skin: Denies: rash Neurological: Denies: weakness Past Medical History Past Medical History: Diabetes Mellitus Additional Past Medical History / Comment(s): kidney stones, gull stones History of Any Multi-Drug Resistant Organisms: None Reported Past Surgical History: Tonsillectomy Past Psychological History: Anxiety Smoking Status: Former smoker Past Alcohol Use History: None Reported Past Drug Use History: Marijuana General Exam Limitations: no limitations General appearance: alert, in no apparent distress Head exam: Present: normocephalic Eye exam: Present: normal appearance Neck exam: Present: normal inspection Respiratory exam: Present: normal lung sounds bilaterally Cardiovascular Exam: Present: regular rate, normal rhythm Expanded Peripheral pulses: 2+: Posterior Tibialis (R), Posterior Tibialis (L) GI/Abdominal exam: Present: soft. Absent: distended, tenderness Extremities exam: Present: normal inspection Back exam: Present: normal inspection. Absent: CVA tenderness (L) Neurological exam: Present: alert Psychiatric exam: Present: normal affect, normal mood Skin exam: Present: normal color Course Vital Signs 11/20/20 09:05 Temperature 97.9 F Pulse Rate 81 Respiratory 18 Rate Blood Pressure 161/78 O2 Sat by Pulse 96 Oximetry Medical Decision Making - Medical Decision Making Patient offered IV, pain medications, and investigation including lab work and urinalysis however patient only wants refill of his pain medication. Patient states he does have an appointment with urology on . Disposition Clinical Impression: Calculus of kidney Disposition: HOME SELF-CARE Condition: Stable Instructions (If sedation given, give patient instructions): Kidney Stones (ED) Additional Instructions: Please follow-up with urology this week as planned. Please call tomorrow to obtain sooner appointment. Prescription has been sent to pharmacy. Return for fevers, uncontrolled pain or vomiting, worsening symptoms or any other concerns. Prescriptions: Ibuprofen [Motrin] 600 mg PO Q6HR PRN #20 tab PRN Reason: Pain HYDROcodone/APAP 5-325MG [[place] 5-325] 1 tab PO Q6HR PRN 3 Days #12 tab PRN Reason: Pain Is patient prescribed a controlled substance at d/c from ED?: Yes When asked, does pt state using other controlled substances?: No If prescribed controlled substance>3 days was MAPS reviewed?: Prescribed <3 Days If opioid is for acute pain is fill amount 7 days or less?: Yes If Rx opioid, was Start Talking consent form obtained?: Yes Referrals: Ayo Bradshaw MD [Primary Care Provider] - 1-2 days Zhen Gonzales MD [STAFF PHYSICIAN] - 1-2 days Time of Disposition: 09:34
== END 2020-11-20 09:47 | disposition home or self-care (01) ==
LOC: EC 09:03
DX: N20.0 Calculus of kidney (principal); Z76.0 Encounter for issue of repeat prescription; E11.9 Type 2 diabetes mellitus without complications; F41.9 Anxiety disorder, unspecified; F12.90 Cannabis use, unspecified, uncomplicated; Z87.891 Personal history of nicotine dependence
CPT/HCPCS: 99283

== ENCOUNTER 2020-12-02 13:53 | Day surgery (SDC) | payer MEDICARE ==
--- NOTE | 2020-11-25 16:51 | P.GSHP ---
History of Present Illness H&P Date: 11/25/20 Chief Complaint: Weak urinary stream, left flank pain The patient is a 74-year-old white male who underwent cystolithotripsy and 2019. He now presents back with obstructive voiding symptoms and left flank pain. A computed tomography scan showed evidence of left hydroureteronephrosis due to a left proximal ureteral calculus. A repeat computed tomography scan on November 21 showed persistent left hydroureteronephrosis, and it appeared that the calculus had migrated to the distal ureter. The computed tomography scan also showed 2 large bladder calculi measuring up to 2.5 cm in size. - Gastrointestinal Gastrointestinal: Denies nausea, Denies vomiting - Genitourinary (Male) Genitourinary: Reports flank pain, Reports hematuria, Reports kidney stones Past Medical History Past Medical History: Diabetes Mellitus Additional Past Medical History / Comment(s): kidney stones, gull stones History of Any Multi-Drug Resistant Organisms: None Reported Past Surgical History: Tonsillectomy Past Psychological History: Anxiety Smoking Status: Former smoker Past Alcohol Use History: None Reported Past Drug Use History: Marijuana Medications and Allergies Home Medications Medication Instructions Recorded Confirmed Type HYDROcodone/APAP 5-325MG [[place] 1 tab PO Q4HR PRN 3 Days #18 tab 11/15/20 Rx 5-325] HYDROcodone/APAP 5-325MG [[place] 1 tab PO Q6HR PRN 3 Days #12 tab 11/20/20 Rx 5-325] Ibuprofen [Motrin] 600 mg PO Q6HR PRN #20 tab 11/20/20 Rx Allergies Allergy/AdvReac Type Severity Reaction Status Date / Time No Known Allergies Allergy Verified 11/20/20 09:08 Surgical - Exam - General well developed, well nourished, no distress - Respiratory normal respiratory effort - Abdomen Abdomen: soft, non tender, no guarding, no rigid, no rebound - Genitourinary normal penis with no external lesions, testicles non-tender - Psychiatric oriented to time, oriented to person, oriented to place, speech is normal, memory intact Results - Imaging CT scan - abdomen: report reviewed, image reviewed Assessment and Plan (1) Calculus in bladder Status: Acute Code(s): N21.0 - CALCULUS IN BLADDER SNOMED Code(s): 65763527 (2) Calculus of ureter Status: Acute Code(s): N20.1 - CALCULUS OF URETER SNOMED Code(s): 30475845 Plan: Cystoscopy with cystolithotripsy to remove bladder calculi. A left retrograde pyelogram will be performed. If the ureteral calculus has failed to pass, ureteroscopy with Holmium laser lithotripsy and stent placement will be performed. The procedure has been reviewed in detail with the patient. He is aware of potential risks, which include anesthesia, bleeding, infection, bladder perforation, and ureteral injury.
[2020-11-30 15:53] VITALS: BMI 38.6
[~2020-12-02 13:53] MED LIST: DEXAMETHASONE SOD PHOSPHATE 4 MG/ML 1 ML VIAL IV ONE; HYDROmorphone 0.5 MG/0.5 ML SYRINGE IVP PRN; LACTATED RINGERS 1,000 ML IV SCH; MIDAZOLAM 2 MG/2 ML VIAL IV PRN; ceFAZolin 3 GM in SODIUM CHLORIDE 0.9% 100 ML IVPB PRN
--- NOTE | 2020-12-02 14:27 | XR ---
EXAMINATION TYPE: XR KUB DATE OF EXAM: 12/02/2020 HISTORY: Pain Comparison: CT 11/15/2020 Single KUB is submitted for interpretation. Findings: Right renal calculi: None Visualized. Right ureteral calculi: None Visualized. Left renal calculi: None Visualized. Left ureteral calculi: None Visualized. Pelvic calcifications: Large bladder calculi noted. Punctate calculi may reflect phlebolith formatio n although distal left ureteral calculus is difficult to exclude. Bowel gas pattern is unremarkable. No free air. No mass effects. IMPRESSION: 1. Large bladder calculi noted. Punctate calculi may reflect phlebolith formation although distal lef t ureteral calculus is difficult to exclude.
[2020-12-02] MEDS: ONDANSETRON 4 MG/2 ML VIAL IVP ONE ×2 (14:43→18:20)
[2020-12-02 14:46] LABS: Glucose,Whole Blood 145 mg/dL (75-99)
[2020-12-02] MEDS ORDERED: fentaNYL (PF) 50 MCG/ML 2 ML AMP ONE (16:13)
[2020-12-02] MEDS ORDERED: SUCCINYLCHOLINE CHLORIDE 100 MG/5 ML SYR IV ONE (16:13)
[2020-12-02] MEDS ORDERED: PROPOFOL 10 MG/ML 20 ML VIAL IV ONE (16:13)
[2020-12-02] MEDS ORDERED: MIDAZOLAM 2 MG/2 ML VIAL ONE (16:13)
[2020-12-02] MEDS ORDERED: ePHEDrine SULFATE/0.9% NACL/PF 50 MG/5 ML SYRINGE IV ONE (16:13)
[2020-12-02] MEDS ORDERED: LIDOCAINE 1% INJ 10MG/ML (20 ML MDV) ONE (16:13)
[2020-12-02] MEDS ORDERED: IOPAMIDOL-370 50ML BTL IRRIGATION ONE (16:41)
[2020-12-02] MEDS ORDERED: LACTATED RINGERS 1,000 ML IV ONE (17:22)
--- NOTE | 2020-12-02 18:09 | P.OP ---
Date of Procedure: 12/02/20 Preoperative Diagnosis: Bladder calculi, left ureteral calculus Postoperative Diagnosis: Bladder calculi Procedure(s) Performed: Cystoscopy, left retrograde pyelogram, cystolithotripsy Anesthesia: BONIA Surgeon: Zhen Gonzales Estimated Blood Loss (ml): 0 IV fluids (ml): 800 Pathology: other (Calculus fragments, sent for chemical analysis) Condition: stable Disposition: PACU Indications for Procedure: The patient is a 74-year-old white male who underwent cystolithotripsy and 2019. He now presents back with obstructive voiding symptoms and left flank pain. A CT scan showed evidence of left hydroureteronephrosis due to a left proximal ureteral calculus. A repeat CT scan on November 21 showed persistent left hydroureteronephrosis, and it appeared that the calculus had migrated to the distal ureter. The CT scan also showed 2 large bladder calculi measuring up to 3 cm in size. Operative Findings: 2 large bladder calculi, removed completely. It appears that the ureteral calculus has passed. Description of Procedure: The patient was taken to the operating room and placed in the dorsal lithotomy position, with legs supported in Antione stirrups. The external genitalia was prepped and draped sterilely. The 30 lens was used to introduce the 21-[place] Cast[place] cystoscopic sheath through the urethra and into the bladder under direct vision. The urethra appeared normal. The prostate showed evidence of lateral lobe enlargement and was completely visually occluded. The bladder was examined in its entirety. The ureteral orifices appeared normal. A total of 2 calculi were seen. No tumors were seen. No diverticuli were seen. Using an 8-[place] cone-tipped catheter, a left retrograde pyelogram was performed. The ureter appeared normal in caliber, and no calculi were seen. There was no evidence of hydronephrosis. The system drained promptly. Using the 1000 micron Holmium laser probe, lithotripsy was performed. Lithotripsy was continued until all calculus fragments could be removed using the [employer] evacuator. Once this was completed, the bladder was inspected. There was no active bleeding, and no evidence of bladder perforation. An 18-[place] Fuentes catheter was placed. The return was essentially clear. The patient tolerated the procedure well was taken to the recovery room in stable condition.
[2020-12-02 18:13] VITALS: RESP 16
[2020-12-02] MEDS ORDERED: KETOROLAC 15 MG/ML 1 ML VIAL IVP ONE (18:20)
[2020-12-02] MEDS ORDERED: MEPERIDINE 50 MG/ML SYRINGE IVP ONE (18:25)
[2020-12-02 18:30] LABS: Glucose,Whole Blood 193 mg/dL (75-99)
[2020-12-02 19:43] VITALS: BP 137/73; PULSE 67; TEMP 98.3
--- NOTE | 2020-12-03 10:27 | FL ---
Fluoroscopy HISTORY: Cystoscopy 38 seconds fluoroscopy time supplied to the referring clinician. 1 intraoperative C-arm images docum ent the procedure. See dictated report from urology.
[2020-12-05] MEDS ORDERED: ePHEDrine SULFATE/0.9% NACL/PF 50 MG/5 ML SYRINGE IV ONE (16:13)
[2020-12-05] MEDS ORDERED: PROPOFOL 10 MG/ML 20 ML VIAL IV ONE (16:13)
[2020-12-05] MEDS ORDERED: MIDAZOLAM 2 MG/2 ML VIAL ONE (16:13)
[2020-12-05] MEDS ORDERED: SUCCINYLCHOLINE CHLORIDE 100 MG/5 ML SYR IV ONE (16:13)
[2020-12-05] MEDS ORDERED: LIDOCAINE 1% INJ 10MG/ML (20 ML MDV) ONE (16:13)
[2020-12-05] MEDS ORDERED: fentaNYL (PF) 50 MCG/ML 2 ML AMP ONE (16:13)
== END 2020-12-02 21:37 | disposition home or self-care (01) ==
LOC: OR 13:53 → 4SSUR 18:36 → OR 21:37
PROVIDERS: ATTEND Urology
DX: N13.2 Hydronephrosis with renal and ureteral calculous obstruction (principal); N21.0 Calculus in bladder; M19.90 Unspecified osteoarthritis, unspecified site; E11.9 Type 2 diabetes mellitus without complications; R01.1 Cardiac murmur, unspecified; E78.00 Pure hypercholesterolemia, unspecified; I10 Essential (primary) hypertension; Z87.442 Personal history of urinary calculi; Z90.49 Acquired absence of other specified parts of digestive tract; Z98.890 Other specified postprocedural states; F41.9 Anxiety disorder, unspecified; Z87.891 Personal history of nicotine dependence; I25.10 Atherosclerotic heart disease of native coronary artery without angina pectoris; Z79.84 Long term (current) use of oral hypoglycemic drugs; Z79.82 Long term (current) use of aspirin; Z79.899 Other long term (current) drug therapy
CPT/HCPCS: 84132; 82365; 74420; 74018; 52318; C1758 ×3; C1769; C1894; J2250; J1100; J2175; J0690; J2405; J2001; J3010; J1885; J0330; J2704; J1170; Q9967

== ENCOUNTER → 2021-03-06 | Outpatient (CLI) | payer MEDICARE ==
[2021-03-06 16:49] LABS: African American GFR (CKD) 85.9 (60.0-200.0); BUN/Creat Ratio 17.05 Ratio (12.00-20.00); Blood Urea Nitrogen 16.9 mg/dL (9.0-27.0); Calcium 9.4 mg/dL (8.7-10.3); Carbon Dioxide 23.5 mmol/L (21.6-31.8); Non-African American GFR(CKD) 74.1 (60.0-200.0); Potassium 4.6 mmol/L (3.5-5.5)
[2021-03-06 21:31] LABS: Basophils # (A) 0.06 X 10*3/uL (0.00-0.10); Basophils % (A) 0.8 %; Eosinophils # (A) 0.23 X 10*3/uL (0.04-0.35); HCT 45.3 % (39.6-50.0); HGB 14.5 g/dL (13.0-17.0); Lymphocytes # (A) 1.58 X 10*3/uL (0.90-5.00); Lymphocytes % (A) 20.6 %; MCH 29.2 pg (27.0-32.0); MCV 91.1 fL (80.0-97.0); Mean Platelet Volume 10.3 fL (9.5-12.2); Monocytes # (A) 0.94 X 10*3/uL (0.20-1.00); Monocytes % (A) 12.3 %; Neutrophils # (A) 4.83 X 10*3/uL (1.80-7.70); Neutrophils % (A) 62.9 %; Platelet Count 183 X 10*3/uL (140-440); RBC 4.97 X 10*6/uL (4.40-5.60); WBC 7.67 X 10*3/uL (4.50-10.00)
== END | disposition home or self-care (01) ==
LOC: LABWHC1 09:27
PROVIDERS: ATTEND Internal Medicine
DX: E11.65 Type 2 diabetes mellitus with hyperglycemia (principal); D64.9 Anemia, unspecified; R97.20 Elevated prostate specific antigen [PSA]
CPT/HCPCS: 36415; 80048; 83036; 84153; 84154; 85025

== ENCOUNTER → 2023-12-17 | Outpatient (CLI) | payer MEDICARE ==
[2023-12-17 21:58] LABS: BUN/Creat Ratio 12.44 Ratio (12.00-20.00); Blood Urea Nitrogen 11.2 mg/dL (9.0-27.0); Calcium 9.5 mg/dL (8.7-10.3); Carbon Dioxide 19.9 mmol/L (21.6-31.8); Chloride 106 mmol/L (96-109); Glucose 148 mg/dL (70-110); Potassium 4.4 mmol/L (3.5-5.5); Prostate Specific Antigen 7.74 ng/mL (0.000-6.500); Sodium 143 mmol/L (135-145)
[2023-12-18 00:22] LABS: NT-Pro-B-Type Natriuretic Pept <36 pg/mL (0-450)
== END | disposition home or self-care (01) ==
LOC: LABWHC1 14:27
PROVIDERS: ATTEND Internal Medicine Interventional Cardiology
DX: N40.0 Benign prostatic hyperplasia without lower urinary tract symptoms (principal); I10 Essential (primary) hypertension; M19.90 Unspecified osteoarthritis, unspecified site; R80.9 Proteinuria, unspecified; E11.65 Type 2 diabetes mellitus with hyperglycemia; I35.0 Nonrheumatic aortic (valve) stenosis; R97.20 Elevated prostate specific antigen [PSA]
CPT/HCPCS: 36415; 80048; 83036; 83880; 84153

== ENCOUNTER → 2024-04-14 | Outpatient (CLI) | payer MEDICARE ==
[2024-04-14 15:14] LABS: ALT 11 U/L (10-49); AST 28 U/L (14-35); BUN/Creat Ratio 15.09 Ratio (12.00-20.00); Blood Urea Nitrogen 16.6 mg/dL (9.0-27.0); Calcium 9.8 mg/dL (8.7-10.3); Carbon Dioxide 25.1 mmol/L (21.6-31.8); Chloride 103 mmol/L (96-109); Glucose 101 mg/dL (70-110); Potassium 4.5 mmol/L (3.5-5.5); Sodium 141 mmol/L (135-145)
== END | disposition home or self-care (01) ==
LOC: LABWHC1 11:16
PROVIDERS: ATTEND Internal Medicine
DX: E87.8 Other disorders of electrolyte and fluid balance, not elsewhere classified (principal); E11.65 Type 2 diabetes mellitus with hyperglycemia; E11.22 Type 2 diabetes mellitus with diabetic chronic kidney disease; N18.2 Chronic kidney disease, stage 2 (mild)
CPT/HCPCS: 36415; 80048; 83036; 84450; 84460

== ENCOUNTER → 2024-09-04 | Outpatient (CLI) | payer MEDICARE ==
--- NOTE | 2024-09-04 14:20 | XR ---
EXAMINATION TYPE: XR chest 2V DATE OF EXAM: 09/04/2024 12:54 PM COMPARISON: 09/29/2020 CLINICAL INDICATION: Male, 78 years old with history of SOB, TECHNIQUE: XR chest 2V view(s) obtained. FINDINGS: The heart size is normal. The pulmonary vasculature is normal. The lungs are clear. IMPRESSION: 1. No acute pulmonary process. [facility], , 09/04/2024 2:18 PM
== END | disposition home or self-care (01) ==
LOC: RADXRMAIN 12:42
PROVIDERS: ATTEND Internal Medicine
DX: R06.02 Shortness of breath (principal)
CPT/HCPCS: 71046

== ENCOUNTER → 2024-11-05 | Outpatient (CLI) | payer MEDICARE ==
[2024-11-05 15:33] LABS: Basophils # (A) 0.05 X 10*3/uL (0.00-0.10); Basophils % (A) 0.8 %; Eosinophils # (A) 0.17 X 10*3/uL (0.04-0.35); Eosinophils % (A) 2.8 %; HCT 44.3 % (39.6-50.0); HGB 14.1 g/dL (13.0-17.0); Lymphocytes # (A) 1.42 X 10*3/uL (0.90-5.00); Lymphocytes % (A) 23.6 %; MCH 29.5 pg (27.0-32.0); MCHC 31.8 g/dL (32.0-37.0); MCV 92.7 FL (80.0-97.0); Mean Platelet Volume 10.4 FL (9.5-12.2); Monocytes # (A) 0.69 X 10*3/uL (0.20-1.00); Monocytes % (A) 11.5 %; NRBC Per 100 WBC 0 X 10*3/uL (0.00-0.01); Neutrophils # (A) 3.66 X 10*3/uL (1.80-7.70); Platelet Count 177 X 10*3/uL (140-440); RBC 4.78 X 10*6/uL (4.40-5.60); RDW 15.5 % (11.5-14.5); WBC 6.01 X 10*3/uL (4.50-10.00)
[2024-11-05 15:55] LABS: Erythrocyte Sedimentation Rate 10 mm/Hr (0-20)
[2024-11-05 19:53] LABS: % Iron Saturation 19.01 (15.00-50.00); ALT 12 U/L (10-49); AST 25 U/L (14-35); Albumin 4.3 g/dL (3.8-4.9); Albumin/Globulin Ratio 1.95 Ratio (1.60-3.17); Alkaline Phosphatase 74 U/L (41-126); BUN/Creat Ratio 16.73 Ratio (12.00-20.00); Blood Urea Nitrogen 18.4 mg/dL (9.0-27.0); C Reactive Protein <0.30 mg/dL (0.00-0.80); Calcium 9.4 mg/dL (8.7-10.3); Carbon Dioxide 23.9 mmol/L (21.6-31.8); Chloride 102 mmol/L (96-109); Chol/HDL Ratio 3.76 Ratio; Creatine Kinase 136 U/L (35-257); Globulin 2.2 g/dL (1.6-3.3); Glucose 138 mg/dL (70-110); Iron 73 UG/DL (65-175); LDL Cholesterol,Calculated 68.5 mg/dL (0.0-131.0); Magnesium 2.1 mg/dL (1.5-2.4); Phosphorus 3.3 mg/dL (2.4-5.1); Potassium 4.5 mmol/L (3.5-5.5); Sodium 137 mmol/L (135-145); Total Bilirubin 0.7 mg/dL (0.3-1.2); Total Iron Binding Capacity 384 UG/DL (228-460); Total Protein 6.5 g/dL (6.2-8.2); Uric Acid 7.1 mg/dL (3.7-8.7)
[2024-11-05 20:34] LABS: NT-Pro-B-Type Natriuretic Pept 55 pg/mL (0-450)
== END | disposition home or self-care (01) ==
LOC: LABWHC1 10:24
PROVIDERS: ATTEND Urology
DX: Z00.00 Encounter for general adult medical examination without abnormal findings (principal); I10 Essential (primary) hypertension; I35.0 Nonrheumatic aortic (valve) stenosis; J44.9 Chronic obstructive pulmonary disease, unspecified; D64.9 Anemia, unspecified; E11.65 Type 2 diabetes mellitus with hyperglycemia; E78.2 Mixed hyperlipidemia; E03.9 Hypothyroidism, unspecified; E66.9 Obesity, unspecified; M81.0 Age-related osteoporosis without current pathological fracture; E55.9 Vitamin D deficiency, unspecified; R97.20 Elevated prostate specific antigen [PSA]
CPT/HCPCS: 36415; 80053; 80061; 82306; 82550; 82728; 83036; 83540; 83550; 83735; 83880; 84100; 84153; 84443; 84550; 85025; 85652; 86140